=== PATIENT | male | born 1965 | race Caucasian/White ===

== ENCOUNTER 2021-04-25 11:49 | Inpatient (IN) | payer BC, OTHER ==
[2021-04-25] MEDS ORDERED: KETOROLAC 30 MG/ML VIAL IVP STA (12:31)
[2021-04-25] MEDS ORDERED: HYDROmorphone 1 MG/ML CARPUJECT IVP STA (12:31)
--- NOTE | 2021-04-25 12:32 | ED Physician Documentation ---
PD HPI ABD PAIN - Stated complaint Stated Complaint: RT SIDE PX - Chief complaint Chief Complaint: Abd Pain - History obtained from History obtained from: Patient - Additional information Additional information: 56-year-old gentleman had mild right lower quadrant pain this morning which became excruciating about 2 hours ago. No history of renal colic or appendicitis. He is not nauseous. Review of Systems Ten Systems: 10 systems reviewed and negative Constitutional: reports: Reviewed and negative Eyes: reports: Reviewed and negative Ears: reports: Reviewed and negative Nose: reports: Reviewed and negative PD PAST MEDICAL HISTORY - Allergies Allergies/Adverse Reactions: Allergies Allergy/AdvReac Type Severity Reaction Status Date / Time No Known Drug Allergies Allergy Verified 04/25/21 12:24 PD ED PE NORMAL - Vitals Vital signs reviewed: Yes - General General: Alert and oriented X 3, Other (He appears quite uncomfortable.) - HEENT HEENT: PERRL, EOMI - Neck Neck: Supple, no meningeal sign, No bony TTP - Cardiac Cardiac: RRR, No murmur - Respiratory Respiratory: No respiratory distress, Clear bilaterally - Abdomen Abdomen: Normal bowel sounds, Soft, Non tender - Back Back: No CVA TTP, No spinal TTP - Derm Derm: Normal color, Warm and dry - Neuro Neuro: Alert and oriented X 3, Normal speech Results - Vitals Vitals: Vital Signs - 24 hr 04/25/21 12:19 Temperature 37.5 C Heart Rate 95 Respiratory 16 Rate Blood Pressure 137/81 H O2 Saturation 99 Oxygen O2 Source Room air - Labs Labs: Laboratory Tests 04/25/21 04/25/21 04/25/21 12:42 12:42 12:42 WBC 11.6 H RBC 4.59 L Hgb 14.9 Hct 42.8 MCV 93.2 MCH 32.5 H MCHC 34.8 RDW 12.7 Plt Count 276 MPV 9.1 Neut # (Auto) 9.7 H Lymph # (Auto) 1.1 L [place] # (Auto) 0.7 Eos # (Auto) 0.0 Baso # (Auto) 0.0 Absolute Nucleated RBC 0.00 Nucleated RBC % 0.0 Sodium 135 Potassium 3.9 Chloride 101 Carbon Dioxide 23 Anion Gap 11.0 BUN 14 Creatinine 0.9 Estimated GFR (MDRD) 88 L Glucose 125 H Calcium 9.2 Total Bilirubin 1.5 H AST 24 ALT 35 Alkaline Phosphatase 77 Total Protein 8.2 Albumin 4.4 Globulin 3.8 Albumin/Globulin Ratio 1.2 Lipase 22 Urine Color DARK YELLOW Urine Clarity CLEAR Urine pH 5.5 Ur Specific [place] 1.020 Urine Protein NEGATIVE Urine Glucose (UA) NEGATIVE Urine Ketones NEGATIVE Urine Occult Blood NEGATIVE Urine Nitrite NEGATIVE Urine Bilirubin NEGATIVE Urine Urobilinogen 1 (NORMAL) Ur Leukocyte Esterase TRACE H Urine RBC None Seen Urine WBC 0-3 Ur Squamous Epith Cells NONE SEEN Urine Bacteria Rare Ur Microscopic Review INDICATED Urine Culture Comments INDICATED PD MEDICAL DECISION MAKING - ED course ED course: 56-year-old gentleman presents with right lower quadrant pain, history was more consistent with renal colic but work-up showing appendicitis. Spoke with the on-call surgeon, Dr. Lara at 1:45 PM. Nicolasa ordered. Departure - Departure Disposition: ED Transfer to [facility] Clinical Impression: Appendicitis Condition: Stable
[2021-04-25 12:48] LABS: BASOPHILS % (AUTO) 0.3 %; EOSINOPHILS % (AUTO) 0.1 %; HCT - HEMATOCRIT 42.8 % (42.0-52.0); HGB - HEMOGLOBIN 14.9 g/dL (14.0-18.0); LYMPHOCYTES # (AUTO) 1.1 10^3/uL (1.5-3.5); LYMPHOCYTES % (AUTO) 9.4 %; MEAN CORPUSCULAR HEMOGLOBIN 32.5 pg (27.0-31.0); MEAN CORPUSCULAR HGB CONC 34.8 g/dL (32.0-36.0); MEAN CORPUSCULAR VOLUME 93.2 fL (80.0-94.0); MEAN PLATELET VOLUME 9.1 fL (7.4-11.4); MONOCYTES # (AUTO) 0.7 10^3/uL (0.0-1.0); MONOCYTES % (AUTO) 6.3 %; NEUTROPHILS # (AUTO) 9.7 10^3/uL (1.5-6.6); NEUTROPHILS % (AUTO) 83.3 %; PLT - PLATELET COUNT 276 10^3/uL (130-450); RED BLOOD COUNT 4.59 10^6/uL (4.70-6.10); RED CELL DISTRIBUTION WIDTH 12.7 % (12.0-15.0); WHITE BLOOD COUNT 11.6 x10^3/uL (4.8-10.8)
[2021-04-25 12:49] LABS: BILIRUBIN,URINE NEGATIVE (NEGATIVE); GLUCOSE, URINE (UA) NEGATIVE (NEGATIVE); KETONES,URINE (UA) NEGATIVE (NEGATIVE); LEUKOCYTE ESTERASE, URINE TRACE (NEGATIVE); NITRITE,URINE NEGATIVE (NEGATIVE); OCCULT BLOOD,URINE NEGATIVE (NEGATIVE); PH,URINE 5.5 PH (5.0-7.5); PROTEIN,URINE NEGATIVE (NEGATIVE); UROBILINOGEN,URINE 1 (NORMAL) E.U./dL (NORMAL)
[2021-04-25 12:51] LABS: CLARITY,URINE CLEAR (CLEAR)
[2021-04-25 12:56] LABS: BACTERIA,URINE Rare /HPF (None Seen); RBC,URINE None Seen /HPF (0-5); SQUAMOUS EPITHELIAL CELL,UR NONE SEEN (<= Few); WBC,URINE 0-3 /HPF (0-3)
[2021-04-25 13:02] LABS: ALBUMIN 4.4 g/dL (3.2-5.5); ALBUMIN/GLOBULIN RATIO 1.2 (1.0-2.2); BILIRUBIN,TOTAL 1.5 mg/dL (0.2-1.0); CALCIUM 9.2 mg/dL (8.5-10.3); CREATININE 0.9 mg/dL (0.6-1.2); POTASSIUM 3.9 mmol/L (3.5-5.0); TOTAL PROTEIN 8.2 g/dL (6.7-8.2)
[2021-04-25] MEDS ORDERED: PIPERACILLIN/TAZOBACTAM 4.5 GM in SODIUM CHLORIDE 0.9% MINIBAG 100 ML IV STA (13:32)
--- NOTE | 2021-04-25 13:45 | CT Report ---
PROCEDURE: Abdomen/Pelvis WO INDICATIONS: RLQ pain TECHNIQUE: Noncontrast 5 mm thick sections acquired from the diaphragms to the symphysis. 5 mm coronal and sagi ttal reformats were then performed. For radiation dose reduction, the following was used: automated exposure control, adjustment of mA and/or kV according to patient size. COMPARISON: None. FINDINGS: Image quality: Excellent. ABDOMEN: Lung bases: Lung bases are clear. Heart size is normal. Solid organs: Liver and spleen are normal in size. Gallbladder is normal Pancreas is normal in con tours. No adrenal nodules. Kidneys are normal in size, without hydronephrosis or nephrolithiasis. Peritoneum and bowel: The appendix is dilated measuring up to 1.2 cm in diameter with surrounding in flammation. There is no evidence of perforation or abscess. Unenhanced bowel loops demonstrate normal wall thickness and caliber. No free fluid or air. Nodes and vessels: No retroperitoneal or mesenteric adenopathy by size criteria. Aorta and inferior vena cava are normal in caliber. Miscellaneous: No ventral hernias. PELVIS: Genitourinary: Bladder wall thickness is normal. Miscellaneous: Small fat-containing right inguinal hernia. Bones: No suspicious bony lesions. No vertebral body compression fractures. IMPRESSION: Acute appendicitis without evidence of perforation or abscess. Reviewed by: Fausto Perea on 04/25/2021 1:44 PM [facility] Approved by: Fausto Perea on 04/25/2021 1:44 PM PST Station ID: [id number]
--- NOTE | 2021-04-25 14:26 | HISTORY & PHYSICAL EXAMINATION ---
HPI - Admitted From Admitted from: ED - History Obtained From History obtained from: Patient Exam limitations: No limitations - History of Present Illness Pain/Problem Location Description: RLQ abdominal pain HPI Comment/Other: 56 yo male, HIV positive on an anti-retroviral medication, developed RLQ abdominal pain this morning. No previous abdominal surgery. PMH/PSH - Past Medical History Cardiovascular: positive: None Respiratory: positive: None Other Past Medical History: HIV positive, on an antiretroviral medication, doesn't recall the name. - Past Surgical History Other past surgical history: I&D of leg wound after a spider bite Meds/Allgy - Allergies Allergies/Adverse Reactions: Allergies Allergy/AdvReac Type Severity Reaction Status Date / Time No Known Drug Allergies Allergy Verified 04/25/21 12:24 Exam - Vital Signs Reviewed Vital Signs: Yes Vital Signs: Vital Signs x48h Temp Pulse Resp BP Pulse Ox 04/25/21 12:19 37.5 C 95 16 137/81 H 99 - Physical Exam General Appearance: positive: No acute distress Eyes Bilateral: positive: Normal inspection ENT: positive: ENT inspection nml Neck: positive: Nml inspection Respiratory: positive: Chest non-tender Cardiovascular: positive: Regular rate & rhythm Abdomen: positive: Tenderness (RLQ, 2-3+, with rebound. No masses.) Extremities: positive: Non-tender Neurologic/Psychiatric: positive: Oriented x3 Results - Lab Results Fish Bones: 04/25/21 12:42 04/25/21 12:42 Other Lab Results: Lab Results x24hrs 04/25/21 04/25/21 04/25/21 Range/Units 12:42 12:42 12:42 WBC 11.6 H (4.8-10.8) x10^3/uL RBC 4.59 L (4.70-6.10) 10^6/uL Hgb 14.9 (14.0-18.0) g/dL Hct 42.8 (42.0-52.0) % MCV 93.2 (80.0-94.0) fL MCH 32.5 H (27.0-31.0) pg MCHC 34.8 (32.0-36.0) g/dL RDW 12.7 (12.0-15.0) % Plt Count 276 (130-450) 10^3/uL MPV 9.1 (7.4-11.4) fL Neut # (Auto) 9.7 H (1.5-6.6) 10^3/uL Lymph # (Auto) 1.1 L (1.5-3.5) 10^3/uL [place] # (Auto) 0.7 (0.0-1.0) 10^3/uL Eos # (Auto) 0.0 (0.0-0.7) 10^3/uL Baso # (Auto) 0.0 (0.0-0.1) 10^3/uL Absolute Nucleated RBC 0.00 x10^3/uL Nucleated RBC % 0.0 /100WBC Sodium 135 (135-145) mmol/L Potassium 3.9 (3.5-5.0) mmol/L Chloride 101 (101-111) mmol/L Carbon Dioxide 23 (21-32) mmol/L Anion Gap 11.0 (6-13) BUN 14 (6-20) mg/dL Creatinine 0.9 (0.6-1.2) mg/dL Estimated GFR (MDRD) 88 L (>89) Glucose 125 H (70-100) mg/dL Calcium 9.2 (8.5-10.3) mg/dL Total Bilirubin 1.5 H (0.2-1.0) mg/dL AST 24 (10-42) IU/L ALT 35 (10-60) IU/L Alkaline Phosphatase 77 (42-121) IU/L Total Protein 8.2 (6.7-8.2) g/dL Albumin 4.4 (3.2-5.5) g/dL Globulin 3.8 (2.1-4.2) g/dL Albumin/Globulin Ratio 1.2 (1.0-2.2) Lipase 22 (22-51) U/L Urine Color DARK YELLOW Urine Clarity CLEAR (CLEAR) Urine pH 5.5 (5.0-7.5) PH Ur Specific [place] 1.020 (1.002-1.030) Urine Protein NEGATIVE (NEGATIVE) mg/dL Urine Glucose (UA) NEGATIVE (NEGATIVE) mg/dL Urine Ketones NEGATIVE (NEGATIVE) mg/dL Urine Occult Blood NEGATIVE (NEGATIVE) Urine Nitrite NEGATIVE (NEGATIVE) Urine Bilirubin NEGATIVE (NEGATIVE) Urine Urobilinogen 1 (NORMAL) (NORMAL) E.U./dL Ur Leukocyte Esterase TRACE H (NEGATIVE) Urine RBC None Seen (0-5) /HPF Urine WBC 0-3 (0-3) /HPF Ur Squamous Epith Cells NONE SEEN (<= Few) Urine Bacteria Rare (None Seen) /HPF Ur Microscopic Review INDICATED Urine Culture Comments INDICATED - Diagnostic Imaging Results Diagnostic Imaging Results: positive: Final report reviewed (Inflamed appendix with appendicolith) Impression/Plan - Problem List Problem List: 1- Acute appendicitis with appendicolith, no evidence for perforation 2. HIV positive, taking antiretroviral medication
[2021-04-25 14:52] LABS: B. PARAPERTUSSIS- RESP PCR PAN NOT DETECTED; B. PERTUSSIS- RESP PCR PANEL NOT DETECTED; C. PNEUMONIAE- RESP PCR PANEL NOT DETECTED; CORONAVIRUS 229E-RESP PCR NOT DETECTED; CORONAVIRUS HKU1-RESP PCR NOT DETECTED; CORONAVIRUS NL63-RESP PCR NOT DETECTED; CORONAVIRUS OC43-RESP PCR NOT DETECTED; HUMAN METAPNEUMOVIRUS NOT DETECTED; INFLUENZA A- RESP PCR PANEL NOT DETECTED; INFLUENZA B - RESP PCR PANEL NOT DETECTED; M. PNEUMONIAE- RESP PCR PANEL NOT DETECTED; PARAINFLUENZA VIRUS 1 NOT DETECTED; PARAINFLUENZA VIRUS 2 NOT DETECTED; PARAINFLUENZA VIRUS 3 NOT DETECTED; PARAINFLUENZA VIRUS 4 NOT DETECTED; RHINOVIRUS/ENTEROVIRUS NOT DETECTED; RSV- RESP PCR PANEL NOT DETECTED; SARS-CoV-2 -RESP PCR PANEL NOT DETECTED
[2021-04-25] MEDS ORDERED: PROPOFOL 200 MG/20 ML VIAL IVP ONE (15:00)
[2021-04-25] MEDS ORDERED: ROCURONIUM 50 MG/5 ML VIAL ONE ×2 (15:00→16:32)
[2021-04-25] MEDS ORDERED: LIDOCAINE-MPF 2% 5 ML VIAL ONE (15:00)
[2021-04-25] MEDS ORDERED: fentaNYL 100 MCG/2 ML VIAL ONE (15:01)
[2021-04-25] MEDS ORDERED: BUPIVACAINE 0.25% PF 30 ML VIAL ONE (15:08)
[2021-04-25] MEDS ORDERED: LIDOCAINE MPF 2%-EPI 1:200000 20 ML VIAL ONE (15:08)
--- NOTE | 2021-04-25 15:13 | ANESTHESIA ---
Pre-Anesthesia VS, & Labs - Diagnosis appendicitis - Procedure laparoscopic appendectomy Vital Signs: Temp Pulse Resp BP Pulse Ox 36.6 C 105 H 16 157/87 H 97 04/25/21 14:46 04/25/21 14:46 04/25/21 14:46 04/25/21 14:46 04/25/21 14:46 Height: 5 ft 8 in Weight (kg): 117.934 kg Body Mass Index: 39.5 BMI Classification: Obese - NPO >8 hours - Lab Results Current Lab Results: Laboratory Tests 04/25/21 12:42: Sodium 135, Potassium 3.9, Chloride 101, Carbon Dioxide 23, Anion Gap 11.0, BUN 14, Creatinine 0.9, Estimated GFR (MDRD) 88 L, Glucose 125 H , Calcium 9.2, Total Bilirubin 1.5 H, AST 24, ALT 35, Alkaline Phosphatase 77, Total Protein 8.2, Albumin 4.4, Globulin 3.8, Albumin/Globulin Ratio 1.2, Lipase 22 04/25/21 12:42: WBC 11.6 H, RBC 4.59 L, Hgb 14.9, Hct 42.8, MCV 93.2, MCH 32.5 H , MCHC 34.8, RDW 12.7, Plt Count 276, MPV 9.1, Neut # (Auto) 9.7 H, Lymph # (Auto) 1.1 L, [place] # (Auto) 0.7, Eos # (Auto) 0.0, Baso # (Auto) 0.0, Absolute Nucleated RBC 0.00, Nucleated RBC % 0.0 Lab results reviewed: Yes Fish Bones: 04/25/21 12:42 04/25/21 12:42 Home Medications and Allergies Allergies/Adverse Reactions: Allergies Allergy/AdvReac Type Severity Reaction Status Date / Time No Known Drug Allergies Allergy Verified 04/25/21 12:24 Anes History & Medical History - Anesthetic History Anesthesia Complications: reports: No previous complications - Medical History Cardiovascular: reports: None Pulmonary: reports: None Other Past Medical History: HIV positive, on an antiretroviral medication, doesn't recall the name. - Surgical History Other Past Surgical History: I&D of leg wound after a spider bite Exam General: Alert, Oriented x3 Dental: WNL Mouth Opening: Greater than 4 Fingerbreadths Mallampati classification: II Thyromental Distance: 4-6 cm Respiratory: Lungs clear Cardiovascular: Regular rate Plan Anesthesia Type: General Consent for Procedure(s) Verified and Reviewed: Yes Code Status: Attempt Resuscitation ASA classification: 3-Severe systemic disease Is this case an emergency?: Yes
[2021-04-25] MEDS ORDERED: BUPIVACAINE 0.25% PF 30 ML VIAL SUBQ ONE (15:58)
[2021-04-25] MEDS ORDERED: ACETAMINOPHEN 1,000 MG/100 ML 100 ML IV ONE (16:09)
[2021-04-25] MEDS ORDERED: KETOROLAC 30 MG/ML VIAL ONE (17:01)
[2021-04-25] MEDS ORDERED: SUGAMMADEX 200 MG/2 ML VIAL IVP ONE (17:01)
[2021-04-25] MEDS ORDERED: METOCLOPRAMIDE 10 MG/2 ML VIAL IVP PRN (17:04)
[2021-04-25] MEDS ORDERED: MORPHINE 2 MG/ML CARPUJECT IVP PRN (17:04)
[2021-04-25] MEDS ORDERED: HYDROmorphone 0.5 MG/0.5 ML SYRINGE IVP PRN ×2 (17:04→17:41)
[2021-04-25] MEDS ORDERED: ATROPINE ABBOJECT 1 MG/10 ML SYRINGE IVP PRN (17:04)
[2021-04-25] MEDS ORDERED: fentaNYL 100 MCG/2 ML VIAL IVP PRN (17:04)
[2021-04-25] MEDS ORDERED: ONDANSETRON 4 MG/2 ML VIAL IVP PRN ×3 (17:04→17:41)
[2021-04-25] MEDS ORDERED: NALOXONE 0.4 MG/ML VIAL IVP PRN (17:04)
[2021-04-25] MEDS ORDERED: ePHEDrine 50 MG/ML VIAL IVP PRN (17:04)
[2021-04-25] MEDS ORDERED: LACTATED RINGERS 1,000 ML IV ONE (17:39)
[2021-04-25] MEDS ORDERED: SODIUM CHLORIDE FLUSH 0.9% 10 ML SYRINGE IVP PRN (17:41)
[2021-04-25] MEDS ORDERED: oxyCODONE 5 MG TABLET PO PRN (17:41)
[2021-04-25] MEDS ORDERED: ACETAMINOPHEN 1,000 MG/100 ML 100 ML IV PRN (17:47)
--- NOTE | 2021-04-25 17:51 | OPERATIVE REPORT ---
Operative Report - General Procedure Date: 04/25/21 Planned Procedure: Lap appendectomy Pre-Op Diagnosis: Acute appendicitis Procedure Performed: Lap appendectomy Post Op Diagnosis: Perforated appendicitis - Procedure Note Primary Surgeon: Antwon Lara MD Anesthesia Provider: Nuria Aguilar CRNA Anesthesia Technique: General ET tube Pathology: Appendix Estimated Blood Loss (mL): 50 Indications: 56-year-old male with right lower quadrant pain acute onset this morning and CT scan showing findings of acute appendicitis with appendicolith. Findings: Severely inflamed appendix with periappendiceal fibrinous exudate and pus. Base of the appendix appeared to have perforated. - Other Other Information/Narrative: The patient was taken to the operating room where general anesthesia was induced patient was intubated and the abdomen was prepped with ChloraPrep and sterilely draped in the usual fashion. Scalpel was used to make an incision at the umbilicus and Metzenbaum scissors dissection was taken down to the fascia. 5 mm trocar was then placed atraumatically and CO2 was insufflated. Laparoscope was inserted and used to visualize the lower abdominal wall while a 12 mm trocar was placed in the left lower quadrant and a 5 mm trocar in the right lower quadrant. Inflammatory changes and mucopurulent exudate were identified in the right lower quadrant as above. The appendix was adhesed to adjacent bowel and was dissected free with blunt and cautery dissection. The mesoappendix was divided with stapler and the appendix was further mobilized. Stapler was then fired across the base of the appendix and the appendix was placed into an Endopouch. The right lower quadrant was then irrigated with over 500 mL of saline and aspirated dry. There was good hemostasis. The appendix was then taken out through the left lower quadrant 12 mm trocar site in the Endopouch. The appendix was quite bulky and removal from the 12 mm trocar site was difficult. The skin incision in the left lower quadrant was extended 1 cm and digital dissection of the fascia incision was necessary. Piecemeal resection of the appendix from the Endopouch was necessary. The entire appendix and Endopouch were eventually removed with no spillage. The abdomen was once again irrigated with saline and aspirated dry. All trochars were removed. The fascia at the 12 mm left lower quadrant incision was closed with 0 Vicryl on a UR needle. Fascia at the umbilicus was also closed with the 0 Vicryl on a UR needle. Skin incisions were closed with 4-0 Monocryl. Dermabond was applied to the incisions. The patient was then extubated and taken recovery room in stable condition.
[2021-04-25] MEDS ORDERED: LACTATED RINGERS 1,000 ML IV SCH ×2 (18:00)
[2021-04-25] MEDS: PIPERACILLIN/TAZOBACTAM 3.375 GM in SODIUM CHLORIDE 0.9% MINIBAG 100 ML IV SCH (21:09)
[2021-04-25] MEDS: ZOLPIDEM 5 MG TABLET PO PRN (22:32)
[2021-04-26] MEDS: SODIUM CHLORIDE FLUSH 0.9% 10 ML SYRINGE IVP SCH ×3 (01:02→15:40)
[2021-04-26] MEDS: PIPERACILLIN/TAZOBACTAM 3.375 GM in SODIUM CHLORIDE 0.9% MINIBAG 100 ML IV SCH ×4 (03:00→21:14)
[2021-04-26 05:16] LABS: BASOPHILS % (AUTO) 0.2 %; HCT - HEMATOCRIT 35.6 % (42.0-52.0); HGB - HEMOGLOBIN 12.1 g/dL (14.0-18.0); LYMPHOCYTES % (AUTO) 5.2 %; MEAN CORPUSCULAR HEMOGLOBIN 31.8 pg (27.0-31.0); MEAN CORPUSCULAR VOLUME 93.4 fL (80.0-94.0); MEAN PLATELET VOLUME 9.3 fL (7.4-11.4); MONOCYTES % (AUTO) 6.6 %; NEUTROPHILS % (AUTO) 87.1 %; PLT - PLATELET COUNT 211 10^3/uL (130-450); RED BLOOD COUNT 3.81 10^6/uL (4.70-6.10); RED CELL DISTRIBUTION WIDTH 12.9 % (12.0-15.0); WHITE BLOOD COUNT 17.2 x10^3/uL (4.8-10.8)
[2021-04-26 05:19] LABS: ABNORMAL LYMPHS % (MANUAL) 0 %; BAND NEUTROPHILS % (MANUAL) 0 %
[2021-04-26 05:23] LABS: CALCIUM 8.3 mg/dL (8.5-10.3); POTASSIUM 3.9 mmol/L (3.5-5.0)
[2021-04-26 05:49] LABS: LYMPHOCYTES # (MANUAL) 1.5 10^3/uL (1.5-3.5); LYMPHOCYTES % (MANUAL) 9 %; MONOCYTES # (MANUAL) 0.9 10^3/uL (0.0-1.0); NEUTROPHILS # (MANUAL) 14.8 10^3/uL (1.5-6.6); PLATELET ESTIMATE, MANUAL NORMAL (130-450,000) (NORMAL); PLATELET MORPHOLOGY NORMAL APPEARANCE (NORMAL); RBC MORPHOLOGY (MULTIPLE) NORMAL APPEARANCE (NORMAL); WBC MORPHOLOGY (MULTIPLE) NORMAL APPEARANCE (NORMAL)
[2021-04-26 05:50] LABS: DIFFERENTIAL COMMENT MANUAL DIFFERENTIAL
--- NOTE | 2021-04-26 09:18 | PHARMACY PROGRESS NOTE ---
- Best Possible Medication History Admit Date and Time: 04/25/21 1741 Processed by: Pharmacy Medication History completed: Yes Patient Interview: Completed Secondary Source(s): Pharmacy records, Insurance records As the person ultimately responsible for medication therapy, providers are able to order a medication from an existing home medication list in [facility] via the "Reconcile Routine" prior to Confirmation of that medication by it technical support specialist. Such practice is discouraged except when the physician, in their clinical judgment, deems that a medical need exists for a medication without regard to previous use.
[2021-04-26] MEDS ORDERED: ACETAMINOPHEN 500 MG TABLET PO PRN (11:04)
--- NOTE | 2021-04-26 11:07 | PROVIDER PROGRESS NOTE ---
Subjective - General Admit Date: 04/25/21 Procedure Date: 04/25/21 Post Op Days: 1 Procedure Performed: Lap appendectomy - Review of Systems Wound/Incisions: positive: Healing well General: positive: No symptoms Gastrointestinal: positive: No symptoms - Other Other Information/Narrative: BP elevated Objective - Patient Data Reviewed Vital Signs: Yes Vital Signs: Vital Signs x48h Temp Pulse Resp BP Pulse Ox 04/26/21 08:00 36.8 C 91 24 172/88 H 95 04/26/21 05:29 37.1 C 88 20 153/80 H 95 Weight: Weight 04/24/21 04/25/21 04/26/21 23:59 23:59 23:59 Weight (kg) 142 kg 143 kg Intake & Output: Intake and Output Totals x24h 04/24/21 04/25/21 04/26/21 23:59 23:59 23:59 Intake Total 9642.681 3253.667 Balance 6788.087 3458.667 - Lab Results Lab Results: 04/26/21 04:56 04/26/21 04:56 Other Lab Results: Lab Results x24hrs 04/26/21 04/26/21 04/25/21 Range/Units 04:56 04:56 13:49 WBC 17.2 H (4.8-10.8) x10^3/uL RBC 3.81 L (4.70-6.10) 10^6/uL Hgb 12.1 L (14.0-18.0) g/dL Hct 35.6 L (42.0-52.0) % MCV 93.4 (80.0-94.0) fL MCH 31.8 H (27.0-31.0) pg MCHC 34.0 (32.0-36.0) g/dL RDW 12.9 (12.0-15.0) % Plt Count 211 (130-450) 10^3/uL MPV 9.3 (7.4-11.4) fL Neut # (Auto) Not Reportable (1.5-6.6) 10^3/uL Lymph # (Auto) Not Reportable (1.5-3.5) 10^3/uL [place] # (Auto) Not Reportable (0.0-1.0) 10^3/uL Eos # (Auto) Not Reportable (0.0-0.7) 10^3/uL Baso # (Auto) Not Reportable (0.0-0.1) 10^3/uL Absolute Nucleated RBC Not Reportable x10^3/uL Total Counted 100 Band Neuts % (Manual) 0 (0 - 10) % Abnorm Lymph % (Manual) 0 % Nucleated RBC % Not Reportable /100WBC Neutrophils # (Manual) 14.8 H (1.5-6.6) 10^3/uL Lymphocytes # (Manual) 1.5 (1.5-3.5) 10^3/uL Monocytes # (Manual) 0.9 (0.0-1.0) 10^3/uL Eosinophils # (Manual) 0.0 (0-0.7) 10^3/uL Basophils # (Manual) 0.0 (0-0.1) 10^3/uL Differential Comment MANUAL DIFFERENTIAL WBC Morphology NORMAL APPEARANCE (NORMAL) Platelet Estimate NORMAL (130-450,000) (NORMAL) Platelet Morphology NORMAL APPEARANCE (NORMAL) RBC Morph Micro Appear NORMAL APPEARANCE (NORMAL) Sodium 133 L (135-145) mmol/L Potassium 3.9 (3.5-5.0) mmol/L Chloride 101 (101-111) mmol/L Carbon Dioxide 23 (21-32) mmol/L Anion Gap 9.0 (6-13) BUN 17 (6-20) mg/dL Creatinine 1.0 (0.6-1.2) mg/dL Estimated GFR (MDRD) 78 L (>89) Glucose 141 H (70-100) mg/dL Calcium 8.3 L (8.5-10.3) mg/dL Total Bilirubin (0.2-1.0) mg/dL AST (10-42) IU/L ALT (10-60) IU/L Alkaline Phosphatase (42-121) IU/L Total Protein (6.7-8.2) g/dL Albumin (3.2-5.5) g/dL Globulin (2.1-4.2) g/dL Albumin/Globulin Ratio (1.0-2.2) Lipase (22-51) U/L Urine Color Urine Clarity (CLEAR) Urine pH (5.0-7.5) PH Ur Specific [place] (1.002-1.030) Urine Protein (NEGATIVE) mg/dL Urine Glucose (UA) (NEGATIVE) mg/dL Urine Ketones (NEGATIVE) mg/dL Urine Occult Blood (NEGATIVE) Urine Nitrite (NEGATIVE) Urine Bilirubin (NEGATIVE) Urine Urobilinogen (NORMAL) E.U./dL Ur Leukocyte Esterase (NEGATIVE) Urine RBC (0-5) /HPF Urine WBC (0-3) /HPF Ur Squamous Epith Cells (<= Few) Urine Bacteria (None Seen) /HPF Ur Microscopic Review Urine Culture Comments Nasal Adenovirus (PCR) NOT DETECTED Nasal B. parapertussis DNA (PCR) NOT DETECTED Nasal Coronavir 229E PCR NOT DETECTED Nasal Coronavir HKU1 PCR NOT DETECTED Nasal Coronavir NL63 PCR NOT DETECTED Nasal Coronavir OC43 PCR NOT DETECTED Nasal Enterovir/Rhinovir PCR NOT DETECTED Nasal Influenza B PCR NOT DETECTED Nasal Influenza A PCR NOT DETECTED Nasal Parainfluen 1 PCR NOT DETECTED Nasal Parainfluen 2 PCR NOT DETECTED Nasal Parainfluen 3 PCR NOT DETECTED Nasal Parainfluen 4 PCR NOT DETECTED Nasal RSV (PCR) NOT DETECTED Nasal B.pertussis DNA PCR NOT DETECTED Nasal C.pneumoniae (PCR) NOT DETECTED [place] Human Metapneumo PCR NOT DETECTED Nasal M.pneumoniae (PCR) NOT DETECTED Nasal SARS-CoV-2 (PCR) NOT DETECTED 04/25/21 04/25/21 04/25/21 Range/Units 12:42 12:42 12:42 WBC 11.6 H (4.8-10.8) x10^3/uL RBC 4.59 L (4.70-6.10) 10^6/uL Hgb 14.9 (14.0-18.0) g/dL Hct 42.8 (42.0-52.0) % MCV 93.2 (80.0-94.0) fL MCH 32.5 H (27.0-31.0) pg MCHC 34.8 (32.0-36.0) g/dL RDW 12.7 (12.0-15.0) % Plt Count 276 (130-450) 10^3/uL MPV 9.1 (7.4-11.4) fL Neut # (Auto) 9.7 H (1.5-6.6) 10^3/uL Lymph # (Auto) 1.1 L (1.5-3.5) 10^3/uL [place] # (Auto) 0.7 (0.0-1.0) 10^3/uL Eos # (Auto) 0.0 (0.0-0.7) 10^3/uL Baso # (Auto) 0.0 (0.0-0.1) 10^3/uL Absolute Nucleated RBC 0.00 x10^3/uL Total Counted Band Neuts % (Manual) (0 - 10) % Abnorm Lymph % (Manual) % Nucleated RBC % 0.0 /100WBC Neutrophils # (Manual) (1.5-6.6) 10^3/uL Lymphocytes # (Manual) (1.5-3.5) 10^3/uL Monocytes # (Manual) (0.0-1.0) 10^3/uL Eosinophils # (Manual) (0-0.7) 10^3/uL Basophils # (Manual) (0-0.1) 10^3/uL Differential Comment WBC Morphology (NORMAL) Platelet Estimate (NORMAL) Platelet Morphology (NORMAL) RBC Morph Micro Appear (NORMAL) Sodium 135 (135-145) mmol/L Potassium 3.9 (3.5-5.0) mmol/L Chloride 101 (101-111) mmol/L Carbon Dioxide 23 (21-32) mmol/L Anion Gap 11.0 (6-13) BUN 14 (6-20) mg/dL Creatinine 0.9 (0.6-1.2) mg/dL Estimated GFR (MDRD) 88 L (>89) Glucose 125 H (70-100) mg/dL Calcium 9.2 (8.5-10.3) mg/dL Total Bilirubin 1.5 H (0.2-1.0) mg/dL AST 24 (10-42) IU/L ALT 35 (10-60) IU/L Alkaline Phosphatase 77 (42-121) IU/L Total Protein 8.2 (6.7-8.2) g/dL Albumin 4.4 (3.2-5.5) g/dL Globulin 3.8 (2.1-4.2) g/dL Albumin/Globulin Ratio 1.2 (1.0-2.2) Lipase 22 (22-51) U/L Urine Color DARK YELLOW Urine Clarity CLEAR (CLEAR) Urine pH 5.5 (5.0-7.5) PH Ur Specific [place] 1.020 (1.002-1.030) Urine Protein NEGATIVE (NEGATIVE) mg/dL Urine Glucose (UA) NEGATIVE (NEGATIVE) mg/dL Urine Ketones NEGATIVE (NEGATIVE) mg/dL Urine Occult Blood NEGATIVE (NEGATIVE) Urine Nitrite NEGATIVE (NEGATIVE) Urine Bilirubin NEGATIVE (NEGATIVE) Urine Urobilinogen 1 (NORMAL) (NORMAL) E.U./dL Ur Leukocyte Esterase TRACE H (NEGATIVE) Urine RBC None Seen (0-5) /HPF Urine WBC 0-3 (0-3) /HPF Ur Squamous Epith Cells NONE SEEN (<= Few) Urine Bacteria Rare (None Seen) /HPF Ur Microscopic Review INDICATED Urine Culture Comments INDICATED Nasal Adenovirus (PCR) Nasal B. parapertussis DNA (PCR) Nasal Coronavir 229E PCR Nasal Coronavir HKU1 PCR Nasal Coronavir NL63 PCR Nasal Coronavir OC43 PCR Nasal Enterovir/Rhinovir PCR Nasal Influenza B PCR Nasal Influenza A PCR Nasal Parainfluen 1 PCR Nasal Parainfluen 2 PCR Nasal Parainfluen 3 PCR Nasal Parainfluen 4 PCR Nasal RSV (PCR) Nasal B.pertussis DNA PCR Nasal C.pneumoniae (PCR) Denzel Human Metapneumo PCR Nasal M.pneumoniae (PCR) Nasal SARS-CoV-2 (PCR) - Current Medications Current Medications: Current Medications Generic Name Dose Route Start Last Admin Trade Name Freq PRN Reason Stop Dose Admin Piperacillin Sod/Tazobactam 100 mls @ 200 mls/hr 04/25/21 21:00 04/26/21 10:25 Sod 3.375 gm/ Sodium Chloride IV Infused Q6H ANGEL Infusion Sodium Chloride 10 ml 04/26/21 01:00 04/26/21 09:11 Sodium Chloride Flush 0.9% 10 Ml Syringe IVP 10 ml 0100,0900,1700 ANGEL Administration Zolpidem Tartrate 5 mg 04/25/21 17:41 04/25/21 22:32 Zolpidem 5 Mg Tablet PO 5 mg QPM PRN Administration Insomnia - Physical Exam Wound/Incisions: positive: Healing well General Appearance: positive: No acute distress Cardiovascular: positive: Regular rate & rhythm Abdomen: positive: Non-tender, Other (Obese) Impression/Plan - Problem List Problem List: One day s/p lap appendectomy on Zozyn for perforated appendicitis. WBC increased to 17K, afebrile. He has walked to the bathroom twice this morning. BP elevated, not on treatment for HTN. Dr Ontiveros consulted. Continue Zosyn, advance diet as tolerated, follow WBC.
[2021-04-26] MEDS: DOLUTEGRAVIR PO SCH (11:54)
[2021-04-26] MEDS: LAMIVUDI PO SCH (11:54)
[2021-04-26] MEDS: ABACAVIR PO SCH (11:54)
[2021-04-26] MEDS ORDERED: DOLUTEGRAVIR PO SCH (12:00)
[2021-04-26] MEDS ORDERED: LAMIVUDI PO SCH (12:00)
[2021-04-26] MEDS ORDERED: ABACAVIR PO SCH (12:00)
--- NOTE | 2021-04-26 12:04 | CONSULTATION NOTE ---
Referring Provider Name of Referring Provider:: Antwon Lara MD Consult Date: 04/26/21 Chief Complaint - Chief Complaint Chief Complaint: High blood pressure History of Present Illness - Admitted From Admitted From:: Home - History Obtained From Records Reviewed: [facility] History obtained from: Patient Exam Limitations: None - History of Present Illness HPI Comment/Other: 56 year old male admitted 04/25 with severe RLQ abdominal pain, taken to OR with Dr. Lara where he was found to have a perforated appendix and underwent a lap appendectomy. He reports his only notable medical history is lymphedema related to spider bites in his LLE and HIV, for which he is on antiretrovirals. He has been receiving IV antibiotics and his WBC is currently 17 (up from 11.6 yesterday). Overnight and today his blood pressures have been elevated, with systolics ranging from 137-172 over 80-94. He denies having a history of HTN. He reports his pain is well controlled, rating it 1-2/10 currently. Heart rate has been 88-99. A hospitalist consult was requested by Dr. Lara to assist with blood pressure management. History - Past Medical History Cardiovascular: reports: None Respiratory: reports: None Neuro: reports: None Endocrine/Autoimmune: reports: None GI: reports: None : reports: None HEENT: reports: None Psych: reports: None Musculoskeletal: reports: None Derm: reports: None MRSA Hx?: No Other Past Medical History: HIV positive from a needle stick while cleaning up a park in 2015, on an antiretroviral medication, doesn't recall the name. - Past Surgical History Other past surgical history: I&D of leg wound after a spider bite - Family & Social History Family History: Mother: (father of heart failure 2014, mother of cancer 2010), Cancer (mother with "inoperable tumor that attached to her aorta"), Father: , CAD (father with CHF and valvular disease), Brother: Alive and Well (brother "drinks and smokes too much" but is otherwise healthy) Living arrangement: At home Living Situation: With family (Lives with his brother at home) Social History Notes: Pt is and lives with his brother. Has 3 ch ildren, a daughter (24) and two sons (23 and 17), all healthy. The 17 year old son lives with pt's ex . Currently employed as an appliance salesman. Rarely vapes, drinks 1-2 shots of vodka 3 times per week, and rare use of marijuana. Denies use of meth, cocaine, or heroin. - Substance History Use: Uses substance without health or social issues: Alcohol (1-2 shots of vodka 3 times per week), Cannabis (occasional) Abuse: Recurrent use of substance despite neg consequences: NONE Dependence: Experiences withdrawal or developed tolerances: NONE - POLST Patient has POLST: No POLST Status: Full Code Meds/Allgy - Home Medications Home Medications: Ambulatory Orders Medication Instructions Recorded Confirmed Abacavir/Dolutegravir/Lamivudi 1 tab PO DAILY 04/26/21 04/26/21 [Triumeq 600-50-300 mg Tablet] - Allergies Allergies/Adverse Reactions: Allergies Allergy/AdvReac Type Severity Reaction Status Date / Time No Known Drug Allergies Allergy Verified 04/25/21 12:24 Review of Systems - Constitutional Constitutional: denies: Fatigue, Fever, Chills, Weakness, Poor appetite - Eyes Eyes: denies: Blurred vision - Cardiovascular Cariovascular: reports: Edema (chronic edema to LLE). denies: Irregular heart rate, Palpitations, Chest pain, Lightheadedness - Respiratory Respiratory: reports: Cough (mild cough, has had for a week, non-productive). denies: Wheezing - Gastrointestinal Gastrointestinal: denies: Abdominal pain, Abdominal distention, Constipation, Diarrhea - Genitourinary Genitourinary: denies: Dysuria, Frequency, Urgency - Musculoskeletal Musculoskeletal: denies: Muscle pain, Limited range of motion - Integumentary Integumentary: denies: Rash, Lesions - Neurological Neurological: denies: General weakness, Focal weakness, Headache, Dizziness, Numbness - Endocrine Endocrine: denies: Polyuria, Polydypsia, Polyphagia - All Other Systems All Other Systems: reports: Reviewed and negative Exam - Vital Signs Reviewed Vital Signs: Yes Vital Signs: Vital Signs x48h Temp Pulse Resp BP Pulse Ox 04/26/21 08:00 36.8 C 91 24 172/88 H 95 04/26/21 05:29 37.1 C 88 20 153/80 H 95 - Physical Exam General Appearance: positive: No acute distress, Alert Eyes Bilateral: positive: Normal inspection, PERRL ENT: positive: ENT inspection nml, No signs of dehydration Neck: positive: Nml inspection Respiratory: positive: Chest non-tender, No respiratory distress, Other (Breath sounds diminished in the bilateral bases) Cardiovascular: positive: Regular rate & rhythm, No murmur, No gallop. negative: Friction rub Peripheral Pulses: positive: 2+ Abdomen: positive: Non-tender, No organomegaly, Nml bowel sounds, No distention Skin: positive: Other (Lower abdominal surgical incision healing well without erythema, induration or purulence; no drainage on ABD pad) Extremities: positive: Non-tender, Full ROM, Nml appearance Neurologic/Psychiatric: positive: Oriented x3, CN's nml (2-12), Motor nml, Sensation nml, Mood/affect nml Conclusion/Plan - Problem List (1) Hypertension Conclusion/Plan: Pt's blood pressures have been consistently elevated since surgery yesterday despite adequate pain management and IV hydration. Systolics have ranged from 137-172 and diastolics 80-94. He denies chest pain or palpitations and does not have a history of heart disease. Also denies dizziness, light-headedness, headache or weakness. His father () has a history of valvular disease and a murmur but patient does not believe he had hypertension. Will start on Amlodipine 5mg po daily and continue to monitor. He was also given a one time dose of Labetolol IV due to continued high BP this afternoon. Will likely require follow up with his PCP for further management. -Labetolol 10mg IVP x1 -Start Amlodipine 5mg po daily -VS Q8H Qualifiers: Hypertension type: primary hypertension Qualified Code(s): I10 - Essential (primary) hypertension (2) HIV (human immunodeficiency virus infection) Conclusion/Plan: Pt reports he was diagnosed with HIV 5 years ago after a dirty needle stick that occurred while he was helping to clean up a park. His physician that manages this care is located at [facility] in [place]. He reports his last CD4 counts were undetectable and he consistently takes his medications. He also reports his next labs are due in December. -Continue home meds Qualifiers: HIV symptom status: asymptomatic, with no history of HIV-related illness Qualified Code(s): Z21 - Asymptomatic human immunodeficiency virus [HIV] infection status (3) Appendicitis Conclusion/Plan: Found to have a perforated appendix and underwent a lap appendectomy with Dr. Lara 04/25. WBC is elevated to 17 today, up from 11.6 today. The incision is without erythema, induration or purulence. He is afebrile. Will continue c are per Dr. Lara Qualifiers: Appendicitis type: acute appendicitis Appendicitis gangrene presence: without gangrene Appendicitis perforation presence: with perforation Appendicitis abscess presence: unspecified whether abscess present (4) Hyperglycemia Conclusion/Plan: No past history or family history of diabetes. Pt is obese and at risk. His blood sugars have been elevated 120s-140s. I will obtain an A1C to assess if he has developed DM2. -A1C - Lab Results Lab results reviewed: Yes Fish Bones: 04/26/21 04:56 04/26/21 04:56 - Diagnostic Imaging Results Diagnostic Imaging Results: positive: Final report reviewed - EKG Results EKG Interpreted Independently: No
[2021-04-26] MEDS ORDERED: amLODIPine 5 MG TABLET PO ONE (13:04)
[2021-04-26] MEDS ORDERED: LABETALOL 20 MG/4 ML SYRINGE IVP ONE (17:12)
[2021-04-26 20:48] LABS: ESTIMATED AVERAGE GLUCOSE 97 mg/dL (70-100)
[2021-04-26] MEDS: ZOLPIDEM 5 MG TABLET PO PRN (22:41)
[2021-04-27] MEDS: PIPERACILLIN/TAZOBACTAM 3.375 GM in SODIUM CHLORIDE 0.9% MINIBAG 100 ML IV SCH ×2 (02:53→09:53)
[2021-04-27] MEDS: SODIUM CHLORIDE FLUSH 0.9% 10 ML SYRINGE IVP SCH ×2 (02:54→09:55)
[2021-04-27 06:12] LABS: BASOPHILS % (AUTO) 0.2 %; EOSINOPHILS % (AUTO) 0.3 %; HCT - HEMATOCRIT 34.4 % (42.0-52.0); HGB - HEMOGLOBIN 11.4 g/dL (14.0-18.0); LYMPHOCYTES # (AUTO) 1.4 10^3/uL (1.5-3.5); LYMPHOCYTES % (AUTO) 12.8 %; MEAN CORPUSCULAR HEMOGLOBIN 31.8 pg (27.0-31.0); MEAN CORPUSCULAR HGB CONC 33.1 g/dL (32.0-36.0); MEAN CORPUSCULAR VOLUME 95.8 fL (80.0-94.0); MEAN PLATELET VOLUME 9.7 fL (7.4-11.4); MONOCYTES # (AUTO) 0.9 10^3/uL (0.0-1.0); MONOCYTES % (AUTO) 8.4 %; NEUTROPHILS # (AUTO) 8.3 10^3/uL (1.5-6.6); NEUTROPHILS % (AUTO) 77.6 %; PLT - PLATELET COUNT 214 10^3/uL (130-450); RED BLOOD COUNT 3.59 10^6/uL (4.70-6.10); RED CELL DISTRIBUTION WIDTH 13.3 % (12.0-15.0); WHITE BLOOD COUNT 10.7 x10^3/uL (4.8-10.8)
[2021-04-27 06:23] LABS: CALCIUM 8.6 mg/dL (8.5-10.3); CREATININE 0.9 mg/dL (0.6-1.2); POTASSIUM 3.8 mmol/L (3.5-5.0)
[2021-04-27] MEDS ORDERED: amLODIPine 5 MG TABLET PO SCH (09:00)
[2021-04-27] MEDS: LAMIVUDI PO SCH (09:55)
[2021-04-27] MEDS: ABACAVIR PO SCH (09:55)
[2021-04-27] MEDS: DOLUTEGRAVIR PO SCH (09:55)
--- NOTE | 2021-04-27 09:57 | Discharge Plan ---
Discharge Plan Problem Reviewed?: Yes Disposition: Home, Self Care Condition: Stable Prescriptions: oxyCODONE [Roxicodone] 5 mg PO Q4HR PRN #14 tablet PRN Reason: Pain Amox/Clav 875/125 [Augmentin 875/125 Tab] 1 tablet PO Q12H 10 Days #20 tablet metroNIDAZOLE [Flagyl] 500 mg PO BID 7 Days #20 tablet amLODIPine [Norvasc] 5 mg PO DAILY #30 tablet Diet: Regular Activity Restrictions: 5 pound lifting limit Shower Restrictions: No Driving Restrictions: Yes (Not while using narcotics) No Smoking: If you smoke, Please STOP! Call for help. Follow-up with: Gabi Hutson MD [Primary Care Provider] - Sharif Vargas MD [Provider Admit Priv/Credential] -
--- NOTE | 2021-04-27 10:00 | DISCHARGE SUMMARY ---
"Discharge Summary Admit Date: 04/25/21 Discharge Date: 04/27/21 Discharging Provider: Alicia Primary Care Provider: Gabi Hutson MD Code Status: Attempt Resuscitation Condition at Discharge: Stable Discharge Disposition: 01 Home, Self Care - DIAGNOSES Admission Diagnoses: Acute appendicitis Discharge Diagnoses with Status of Each Condition: Resolved - HPI History of Present Illness: 56 yo male, HIV positive on an anti-retroviral medication, developed RLQ abdominal pain this morning. No previous abdominal surgery. - CONSULTS | PROCEDURES Consultations: Hospitalist Service Procedures: Laparoscopic Appendectomy - HOSPITAL COURSE Hospital Course: Kelton taken to the operating room for an uneventful laparoscopic appendectomy. He was found to have appendicitis but without gross evidence of perforation. [facility]. He was noted to be hypertensive and started on amlodipine by the hospitalist service. Today his white count has normalized as has his differential. He has been walking the halls unassisted and has had multiple bowel movements. He is discharged to his home. He resides alone but does have someone to take him home, bring him food, and get his prescriptions.He will follow-up with me in the office in 2 weeks. - ALLERGIES Allergies/Adverse Reactions: Allergies Allergy/AdvReac Type Severity Reaction Status Date / Time No Known Drug Allergies Allergy Verified 04/25/21 12:24 - MEDICATIONS Home Medications: Ambulatory Orders Medication Instructions Recorded Confirmed Abacavir/Dolutegravir/Lamivudi 1 tab PO DAILY 04/26/21 04/26/21 [Triumeq 600-50-300 mg Tablet] Acetaminophen [Tylenol] 500 mg PO Q4HR PRN tablet 04/27/21 Amox/Clav 875/125 [Augmentin 1 tablet PO Q12H 10 Days #20 tablet 04/27/21 875/125 Tab] amLODIPine [Norvasc] 5 mg PO DAILY #30 tablet 04/27/21 metroNIDAZOLE [Flagyl] 500 mg PO BID 7 Days #20 tablet 04/27/21 oxyCODONE [Roxicodone] 5 mg PO Q4HR PRN #14 tablet 04/27/21 - PHYSICAL EXAM AT DISCHARGE General Appearance: positive: No acute distress, Alert Eyes Bilateral: positive: Normal inspection, PERRL, EOMI ENT: positive: ENT inspection nml Neck: positive: Nml inspection Respiratory: positive: Chest non-tender, No respiratory distress, Breath sounds nml Cardiovascular: positive: Regular rate & rhythm Peripheral Pulses: positive: 0 Abdomen: positive: Other (Appropriately tender, active bowel sounds, wounds are clean and dry) Skin: positive: Color nml Extremities: positive: Pedal edema. negative: Calf tenderness - LABS Result Diagrams: 04/27/21 05:22 04/27/21 05:22 - QUALITY (Female Hip Fx Only) Was patient sent home on osteoporosis medication?: No - FOLLOW UP Follow Up: [address] Vargas With in [address] Hutson - TIME SPENT Time Spent in Discharge (Minutes): 20"
[2021-04-27 11:07] VITALS: BP 169/84
== END 2021-04-27 11:25 | disposition home or self-care (01) | DRG 340 ==
LOC: ED 11:49 → SDS 14:23 → MS3 17:41
PROVIDERS: ADMIT Surgery; ATTEND Surgery
PROC: 0DTJ4ZZ Resection of Appendix, Percutaneous Endoscopic Approach (ICD-10-PCS; principal; 2021-04-25 15:30)
DX: K35.32 Acute appendicitis with perforation, localized peritonitis, and gangrene, without abscess (principal); I10 Essential (primary) hypertension; Z21 Asymptomatic human immunodeficiency virus [HIV] infection status; E66.9 Obesity, unspecified; Z68.39 Body mass index [BMI] 39.0-39.9, adult; Z79.899 Other long term (current) drug therapy; F17.290 Nicotine dependence, other tobacco product, uncomplicated; R73.9 Hyperglycemia, unspecified
CPT/HCPCS: 0202U; 36415; 74176; 80048; 80053; 81001; 83036; 83690; 85025; 87086; 99284; 99285; A9270; J0131; J1170; J7120; 81003